=== PATIENT | female | born 1975 | race Caucasian/White ===

== ENCOUNTER 2024-02-22 12:07 | Inpatient (IN) | payer MEDICAID, SELFPAY ==
[2024-02-22 12:08] VITALS: BP 142/86; PULSE 71; RESP 21; TEMP 36.5; O2SAT 99; BMI 23.5
--- NOTE | 2024-02-22 12:13 | CTR_ITS ---
PROCEDURE INFORMATION: Exam: CT Head Without Contrast Exam date and time: 02/22/2024 1:22 PM Age: 48 years old Clinical indication: Altered mental status/memory loss; Patient HX: Hallucinations. ; Additional info: AMS TECHNIQUE: Imaging protocol: Computed tomography of the head without contrast. Radiation optimization: All CT scans at this facility use at least one of these dose optimization techniques: automated exposure control; mA and/or kV adjustment per patient size (includes targeted exams where dose is matched to clinical indication); or iterative reconstruction. COMPARISON: No relevant prior studies available. RADIATION DOSE METRICS: Total DLP (mGy-cm): 876.08 FINDINGS: Brain: Normal. No hemorrhage. Unremarkable white matter. No mass effect. Basal ganglion calcifications. Cerebral ventricles: No ventriculomegaly. Paranasal sinuses: Visualized sinuses are unremarkable. No fluid levels. Mastoid air cells: Visualized mastoid air cells are well aerated. Bones: Unremarkable. No acute fracture. Soft tissues: Unremarkable. CT/CT head wo con* [id number] IMPRESSION: No acute intracranial abnormality.
--- NOTE | 2024-02-22 12:13 | XRR_ITS ---
PROCEDURE INFORMATION: Exam: XR Chest Exam date and time: 02/22/2024 12:22 PM Age: 48 years old Clinical indication: Other: AMS TECHNIQUE: Imaging protocol: Radiologic exam of the chest. Views: 1 view. COMPARISON: No relevant prior studies available. FINDINGS: Lungs: Unremarkable. No consolidation. Pleural spaces: Unremarkable. No pleural effusion. No pneumothorax. Heart/Mediastinum: Unremarkable. No cardiomegaly. Bones/joints: Unremarkable. XR/XR chest 1V portable [id number] IMPRESSION: No acute findings.
--- NOTE | 2024-02-22 12:13 | ECG_ITS ---
[facility] Test Date: 2024-02-22 Pat Name: Alondra Grace Department: Room: Gender: Female Grocery Clerk: : 1975 Requested By: Toni Diaz Order Number: [id number] Pauly MD: Sourav Rock M.D. Measurements Intervals [place] Rate: 76 P: 52 PA: 136 QRS: 71 QRSD: 97 T: 56 QT: 438 QTc: 494 Interpretive Statements SINUS RHYTHM No previous ECG available for comparison Electronically Signed On 02-22-2024 14:32:58 CDT by Sourav Rock M.D. [id number]
--- NOTE | 2024-02-22 12:13 | ED.C_ITS ---
HPI - Psych 2 General: Chief Complaint: Psychiatric Symptoms Stated Complaint: Hallucinations Time Seen by Provider: 02/22/24 12:08 Source: EMS Mode of arrival: EMS Limitations: altered mental status History of Present Illness: 8-year-old female history of PTSD along with depression anxiety EMS states they were called by her mother she has been hallucinating and becoming increasingly agitated combative over the last 4 days. They state that she had stopped taking her meds a month ago. They states she is very combative and hallucinating with them they did have to sedate her she had received 5 mg of Versed along with 300 mg of ketamine patient is currently sedated not able to get any history from her Review of Systems 2 General: Reports: ROS unobtainable due to mental status Physical Exam 2 Const: COMMON NORMALS: negative for patient oriented x3 HENMT: COMMON NORMALS: normocephalic and atraumatic HEAD & SCALP: n ormocephalic and atraumatic Eye: COMMON NORMALS: Equal, round and reactive pupils present and EOMs intact bilaterally PUPIL: Yes Equal, round and reactive pupils present Neck/C-Spine: COMMON NORMALS: full ROM and supple Chest: COMMONS NORMALS: normal inspection of the chest and normal palpation of entire chest wall Resp: COMMON NORMALS: normal respiratory effort, No retractions, No use of accessory muscles and clear to auscultation bilaterally AUSCULTATION: clear to auscultation bilaterally Cardio: COMMON NORMALS: regular rate, regular rhythm and No murmurs present (Cardio) RATE: regular rate RHYTHM: regular rhythm GI: COMMON NORMALS: Normal to inspection, nondistended, normoactive bowel sounds present, Soft to palpation, non-tender and no masses PALPATION: Yes Soft to palpation Extremity: COMMON NORMALS: normal to inspection and full ROM Neuro: COMMON NORMALS: moves all extremities and no focal motor deficits; negative for patient oriented x3 Psych: COMMON NORMALS: negative for mental status grossly normal and negative for Normal thought process present THOUGHT PROCESS: abnormal Skin: COMMON NORMALS: no rashes or lesions noted and no wounds GENERAL SKIN EXAM: no rashes or lesions noted Course 2 Vital Signs: Vital signs: Vital Signs Temperature 97.7 F 02/22/24 12:08 Pulse Rate 61 02/22/24 15:08 Respiratory Rate 18 02/22/24 12:22 Blood Pressure 142/86 02/22/24 12:22 Pulse Oximetry 98 02/22/24 15:08 Oxygen Delivery Me thod Room Air 02/22/24 15:08 MDM - Psych Medical Decision Making Patient presents with acute psychosis she did test positive for amphetamines as well blood work otherwise normal she is medically cleared placed under 96-hour hold I spoke to psychiatrist and will admit. Medical Records I reviewed the patient's medical records. Lab Data I reviewed the patient's lab results. 02/22/24 14:22 02/22/24 14:22 Radiology Impressions Chest X-Ray 02/22/24 12:13 IMPRESSION: No acute findings. Head CT 02/22/24 12:13 IMPRESSION: No acute intracranial abnormality. Laboratory Results WBC 8.95 10^3/uL (3.29-11.43) 02/22/24 14:22 RBC 4.21 10^6/uL (3.85-5.65) 02/22/24 14:22 Hgb 13.50 g/dL (11.27-16.99) 02/22/24 14:22 Hct 40.1 % (36-47) 02/22/24 14:22 MCV 95.2 fl (85-98) 02/22/24 14:22 MCH 32.1 pg (27-33) 02/22/24 14:22 MCHC 33.7 g/dL (30-55) 02/22/24 14:22 RDW 13.3 % (12.1-15.1) 02/22/24 14:22 Plt Count 378 10^3/cmm (157-399) 02/22/24 14:22 MPV 9.3 fL (7.4-10.4) 02/22/24 14:22 Neut % (Auto) 65.5 % 02/22/24 14:22 Lymph % (Auto) 26.9 % 02/22/24 14:22 Emmons % (Auto) 5.7 % 02/22/24 14:22 Eos % (Auto) 0.9 % 02/22/24 14:22 Baso % (Auto) 0.7 % 02/22/24 14:22 Neut # (Auto) 5.86 10^3/uL (1.8-7.7) 02/22/24 14:22 Lymph # (Auto) 2.4 10^3/uL (0.8-4.8) 02/22/24 14:22 Emmons # (Auto) 0.5 10^3/uL (0.2-0.9) 02/22/24 14:22 Eos # (Auto) 0.1 10^3/uL (0.0-0.8) 02/22/24 14:22 Baso # (Auto) 0.1 10^3/uL (0.0-0.1) 02/22/24 14:22 Nucleated RBC % (auto) 0 % 02/22/24 14:22 Nucleated RBCs # 0.0 /100WBC 02/22/24 14:22 Sodium 139 mmol/L (136-145) 02/22/24 14:22 Potassium 3.4 mmol/L (3.5-5.1) L 02/22/24 14:22 Chloride 103 mmol/L (98-107) 02/22/24 14:22 Carbon Dioxide 22 mmol/L (22-29) 02/22/24 14:22 Anion Gap 17.4 (5-19) 02/22/24 14:22 BUN 19 mg/dL (6-20) 02/22/24 14:22 Creatinine 0.5 mg/dL (0.5-0.9) 02/22/24 14:22 GFR Calculation 131.1 mL/min (90-130) H 02/22/24 14:22 Glucose 74 mg/dL (65-115) 02/22/24 14:22 Calculated Osmolality 289 mOsm/kg (285-295) 02/22/24 14:22 Calcium 8.9 mg/dL (8.5-10.5) 02/22/24 14:22 Total Bilirubin 0.7 mg/dL (0.15-1.2) 02/22/24 14:22 AST 18 U/L (0-32) 02/22/24 14:22 ALT 14 U/L (0-33) 02/22/24 14:22 Alkaline Phosphatase 75 U/L (35-105) 02/22/24 14:22 Total Protein 7.7 g/dL (6.6-8.7) 02/22/24 14:22 Albumin 4.4 g/dL (3.5-5.2) 02/22/24 14:22 Globulin 3.3 g/dL (1.3-4.6) 02/22/24 14:22 TSH 2.25 uIU/mL (0.27-4.20) 02/22/24 14:22 HCG, Qual Negative (Negative) 02/22/24 14:56 Urine Color Yellow (Yellow) 02/22/24 14:56 Urine Appearance Slightly cloudy (CLEAR) 02/22/24 14:56 Urine pH 5 (5-7) 02/22/24 14:56 Ur Specific [place] 1.025 (1.005-1.030) 02/22/24 14:56 Urine Protein Trace (Negative) 02/22/24 14:56 Urine Glucose (UA) Norm (Normal) 02/22/24 14:56 Urine Ketones 3+ (Negative) H 02/22/24 14:56 Urine Blood Neg (Negative) 02/22/24 14:56 Urine Nitrate Negative (Negative) 02/22/24 14:56 Urine Bilirubin Neg (Negative) 02/22/24 14:56 Urine Urobilinogen Norm mg/dL (Negative) 02/22/24 14:56 Ur Leukocyte Esterase Negative (Negative) 02/22/24 14:56 Urine RBC None /hpf (0-2) 02/22/24 14:56 Urine WBC None /hpf (0-5) 02/22/24 14:56 Ur Squamous Epith Cells 0-4 /hpf (0-5) H 02/22/24 14:56 Amorphous Sediment 2+ /hpf 02/22/24 14:56 Urine Bacteria 2+ /hpf (NONE) H 02/22/24 14:56 Salicylates 0.5 mg/dL (3-10) L 02/22/24 14:22 Urine Opiates Screen Negative ng/mL (Negative) 02/22/24 14:56 Acetaminophen < 5.0 ug/mL (10-30) L 02/22/24 14:22 Ur Barbiturates Screen Negative ng/mL (Negative) 02/22/24 14:56 Ur Phencyclidine Scrn Negative ng/mL (Negative) 02/22/24 14:56 Ur Amphetamines Screen Positive ng/mL (Negative) H 02/22/24 14:56 U Benzodiazepines Scrn Positive ng/mL (Negative) H 02/22/24 14:56 Urine Cocaine Screen Negative ng/mL (Negative) 02/22/24 14:56 U Marijuana (THC) Screen Positive ng/mL (Negative) H 02/22/24 14:56 Ethyl Alcohol < 10 mg/dL (0-10) 02/22/24 14:22 All radiology interpretation(s) finalized by discharge EKG Data EKG 1: I personally reviewed and interpreted this EKG as follows: EKG interpretation date: 02/22/24 EKG interpretation time: 12:19 Interpretation: nsr hr [address] elevation qrs 97 qtc 469 Discharge Plan Discharge Patient Disposition: Admitted As Inpatient Admit Provider: Elliot Puga Clinical Impression: Acute psychosis Condition: Stable Coding Level of Care Code ED Remedial Reading Teacher for Tyrell Mora
[2024-02-22 12:22] VITALS: BP 142/86; PULSE 66; RESP 18; O2SAT 97
--- NOTE | 2024-02-22 12:53 | PC.PHAR ---
PT USES [facility]. CURRENT MED LIST IS WHAT THEY HAVE ON RECORD. LAST FILL DATES AND QTY DISPENSED ARE IN PHARMACY NOTES.
[2024-02-22] MEDS: haloperidol inj 5 mg/mL INJ 1 mL IVP (13:52)
[2024-02-22] MEDS: LORazepam 2 mg/mL INJ 1 mL IVP (14:01)
[2024-02-22 14:38] LABS: Basophils # 0.1 10^3/uL (0.0-0.1); Basophils % 0.7 %; Eosinophils # 0.1 10^3/uL (0.0-0.8); Eosinophils % 0.9 %; Hematocrit 40.1 % (36-47); Lymphocytes # 2.4 10^3/uL (0.8-4.8); Lymphocytes % 26.9 %; Mean Corpuscular HGB Conc 33.7 g/dL (30-55); Mean Corpuscular Hemoglobin 32.1 pg (27-33); Mean Corpuscular Volume 95.2 fl (85-98); Mean Platelet Volume 9.3 fL (7.4-10.4); Monocytes # 0.5 10^3/uL (0.2-0.9); Monocytes % 5.7 %; Neutrophils # 5.86 10^3/uL (1.8-7.7); Neutrophils % 65.5 %; Nucleated Red Blood Cells % 0 %; Platelet Count 378 10^3/cmm (157-399); Red Blood Count 4.21 10^6/uL (3.85-5.65); Red Cell Distribution Width 13.3 % (12.1-15.1); White Blood Count 8.95 10^3/uL (3.29-11.43)
[2024-02-22 15:02] LABS: Acetaminophen < 5.0 ug/mL (10-30); Alanine Aminotransferase 14 U/L (0-33); Albumin Level 4.4 g/dL (3.5-5.2); Alcohol Level < 10 mg/dL (0-10); Alkaline Phosphatase 75 U/L (35-105); Anion Gap 17.4 (5-19); Aspartate Amino Transferase 18 U/L (0-32); Blood Urea Nitrogen 19 mg/dL (6-20); Calcium 8.9 mg/dL (8.5-10.5); Carbon Dioxide 22 mmol/L (22-29); Chloride 103 mmol/L (98-107); Creatinine Clr Calc Pharmacy 137.8884; Globulin 3.3 g/dL (1.3-4.6); Glomerular Filtration Rate 131.1 mL/min (90-130); Glucose 74 mg/dL (65-115); Osmolality Calculated 289 mOsm/kg (285-295); Potassium 3.4 mmol/L (3.5-5.1); Salicylate 0.5 mg/dL (3-10); Sodium 139 mmol/L (136-145); Thyroid Stimulating Hormone 2.25 uIU/mL (0.27-4.20); Total Bilirubin 0.7 mg/dL (0.15-1.2); Total Protein 7.7 g/dL (6.6-8.7)
[2024-02-22 15:08] VITALS: PULSE 61; O2SAT 98
[2024-02-22 15:11] LABS: HCG Qualitative Urine. Negative (Negative)
--- NOTE | 2024-02-22 15:25 | PC.NURSE ---
96 hr rights reviewed with patient @1324 with assistance of LETY BRITT/Security [employer]. Patient verbalized understandment to 96 hr rights. Patient currently appears asleep with eyes closed, resting comfortably. No verbalized needs at this time, Patient copy left @bedside with patient.
[2024-02-22 15:50] LABS: Amphetamines Screen Urine Positive (Negative); Barbiturates Screen Urine Negative (Negative); Benzodiazepines Screen Urine Positive (Negative); Cocaine Screen Urine Negative (Negative); Opiate Screen Urine Negative (Negative); PCP Screen Urine Negative (Negative); THC Screen Urine Positive (Negative)
[2024-02-22 15:59] LABS: Bilirubin Urine Neg (Negative); Blood Urine Neg (Negative); Glucose Urine UA Norm (Normal); Ketones Urine 3+ (Negative); Leukocyte Esterase Urine Negative (Negative); Nitrate Urine Negative (Negative); Protein Urine Trace (Negative); Specific Gravity, Urine 1.025 (1.005-1.030); Urine Appearance Slightly Cloudy (CLEAR); Urine Color Yellow (Yellow); Urobilinogen Urine Norm (Negative); pH Urine 5 (5-7)
[2024-02-22 16:00] LABS: Add Urine Culture? No; Add Urine Microscopic? YES; Amorphous Sediment Urine 2+ /hpf; Bacteria Urine 2+ /hpf; Squamous Epithelial Cell Urine 0-4 /hpf (0-5)
--- NOTE | 2024-02-22 19:47 | PC.NURSE ---
pts mom called and wanted it noted that the pt has a busted ear drum that she needs surgery for. the pts mother states that the only thing hse did was drink some alcohol this morning and she goes crazy .
[2024-02-22 21:20] VITALS: BP 133/97; PULSE 61; RESP 18; TEMP 36.5; O2SAT 98
[2024-02-22 22:02] VITALS: BP 130/83; PULSE 82; RESP 18; TEMP 36.7; O2SAT 98
[2024-02-23] MEDS: ALPRAZolam 0.5 mg Tablet 1 MG PO ×3 (03:17→20:21)
[2024-02-23] MEDS: hyDROXYzine 25 mg Capsule 50 MG PO ×2 (03:18→16:29)
[2024-02-23 06:00] VITALS: BP 137/82; PULSE 69; RESP 16; O2SAT 98
[2024-02-23] MEDS: hydroCHLOROthiazide 25 mg Tablet PO (07:48)
[2024-02-23] MEDS: ascorbic acid 500 mg Tablet 1000 MG PO (07:48)
[2024-02-23] MEDS: amlodipine 5 mg Tablet PO (07:48)
[2024-02-23] MEDS: PRENATAL VIT NO.130/IRON/FOLIC 1 EACH TABLET PO (07:49)
[2024-02-23] MEDS: cyanocobalamin 1,000 mcg Tablet 500 MCG PO (07:49)
[2024-02-23] MEDS: pantoprazole DR 40 mg Tablet PO (07:49)
--- NOTE | 2024-02-23 08:24 | PC.NURSE ---
During assessment, patient is alert and oriented x4. Patient states that she has some memory of the events that took place over the last couple of days. Patient denies SI, HI, AVH, depression and anxiety, stating I am just so tired.
[2024-02-23] MEDS: thyroid 60 mg Tablet 30 MG PO (09:42)
[2024-02-23] MEDS: OLANZapine 5 mg ODT PO (12:49)
--- NOTE | 2024-02-23 12:54 | PC.NURSE ---
Patient appears agitated, requesting something to calm her nerves. This nurse attempted to discuss the issue at hand with patient, but patient not forthcoming. Adminstered zyprexa 5mg ODT
[2024-02-23 14:00] VITALS: BP 129/86; PULSE 88; RESP 20; TEMP 36.6; O2SAT 96
[2024-02-23 14:23] VITALS: PULSE 117; RESP 15; O2SAT 98
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
[2024-02-23] MEDS: paliperidone ER 3 mg Tablet PO (17:47)
[2024-02-23] MEDS: doxepin 50 mg Capsule PO (20:18)
[2024-02-23] MEDS: trazodone 50 mg Tablet PO (20:18)
[2024-02-23 21:26] VITALS: BP 105/70; PULSE 77; RESP 13; TEMP 36.6; O2SAT 98
[2024-02-24] MEDS: hyDROXYzine 25 mg Capsule 50 MG PO (03:14)
[2024-02-24] MEDS: ALPRAZolam 0.5 mg Tablet 1 MG PO ×3 (04:22→21:41)
[2024-02-24 06:00] VITALS: BP 132/82; PULSE 82; RESP 14; TEMP 36.7; O2SAT 98
[2024-02-24] MEDS: hydroCHLOROthiazide 25 mg Tablet PO (08:19)
[2024-02-24] MEDS: cyanocobalamin 1,000 mcg Tablet 500 MCG PO (08:19)
[2024-02-24] MEDS: amlodipine 5 mg Tablet PO (08:19)
[2024-02-24] MEDS: pantoprazole DR 40 mg Tablet PO (08:19)
[2024-02-24] MEDS: thyroid 60 mg Tablet 30 MG PO (08:19)
[2024-02-24] MEDS: PRENATAL VIT NO.130/IRON/FOLIC 1 EACH TABLET PO (08:19)
[2024-02-24] MEDS: ascorbic acid 500 mg Tablet 1000 MG PO (08:25)
[2024-02-24] MEDS: ibuprofen 800 mg tablet PO ×2 (12:37→23:51)
--- NOTE | 2024-02-24 13:27 | P.NPUPN_ITS ---
Subjective NPU 2 Subjective: 48-year-old female admitted with paranoia, aggression, and reports of hallucinations with the patient endorsing recent noncompliance with her medication regimen. The patient had described having used methamphetamine over the last week for the first time in several years and stated that she began to question reality as to whether everyone in her family had left to take care of her of her uncle in [place]. She had stated that she was suspicious of her family's intentions and somehow it had led to her being hospitalized here. She had stated that she had felt much better and wished to go home. She had not endorsed improved sleep. She was positive for benzodiazepines, amphetamines, and marijuana. She had minimized her past history of amphetamine use. She had reported having continued pain issues stating that she needed surgery on her perforated eardrum and was reporting that this had somehow led to her use of amphetamine to manage her pain. Mental Status Exam 2 MSE Comments: Patient was sitting on her bed and appeared in some significant distress again today. There is no evidence of any abnormal involuntary motor movements tics or tremors appreciated. She appealed older than her stated age. Her gait was normal. Her hygiene was poor. Her speech was increased in productivity, normal volume. Her mood was described as better. Her affect was odd. Her thought process was more linear but rambled at times. Thought content showed no clear evidence of suicidal or homicidal ideation. No overt paranoia and no clear ideas of reference today. She did not appear to be responding to internal stimuli today. Her recent and remote memory were poor. She was alert and oriented to person, place, month, year but not day or date. Her insight appeared impaired. Her judgment appeared poor. Her impulse control appeared limited. Vitals/I&O/Wt Last Vital Signs Temp 98.1 F 02/24/24 06:00 Pulse 82 02/24/24 06:00 Resp 14 02/24/24 06:00 BP 132/82 02/24/24 06:00 Pulse Ox 98 02/24/24 06:00 O2 Del Method Room Air 02/24/24 06:00 Data NPU 02/22/24 14:22 02/22/24 14:22 A&P Assessment and plan (1) Substance-induced psychotic disorder: (2) Acute psychosis: (3) Methamphetamine abuse: Plan 48-year-old female with no previous reported history of inpatient hospitalization admitted involuntarily after endorsing methamphetamine use with increased agitation, confusion, and psychosis. The patient would likely benefit from inpatient psychiatric hospitalization. #1.? Engage patient in individual milieu and group therapy.? #2? Encourage sober living treatment after discharge at the highest level of care to which he is willing to commit. #3??? Restarted outpatient medications. Continue Invega 3mg to target psychosis, appears improved but still not clear, likely from methamphetamine induced psychosis. #4?? TO-15 minute checks? #5?? Will attempt to gather collateral information Involuntary Hold Information 2 96 Hour Hold: 96 Hour Involuntary Admission: Yes 96 Hour Hold Ending Date: 02/26/24 96 Hour Hold Ending Time: 12:28 Attestations NPU 2 Medical Necessity Statement*: Inpatient hospitalization is medically necessary and deemed to ?be ?the clinically appropriate intervention ?at this time.? We will monitor/initiate medications and make changes as indicated.? The patient?s likely length of stay 4-6 days. Coding Level of Care Code Acute Code for Chg Fwd Diagnoses Substance-induced psychotic disorder F19.959 Acute psychosis F23 Methamphetamine abuse F15.10
[2024-02-24 14:00] VITALS: BP 119/76; PULSE 95; RESP 17; TEMP 36.6; O2SAT 99
[2024-02-24] MEDS: docusate sodium 100 mg Capsule PO (15:03)
[2024-02-24] MEDS: paliperidone ER 3 mg Tablet PO (17:44)
[2024-02-24] MEDS: trazodone 50 mg Tablet 100 MG PO (20:02)
[2024-02-24] MEDS: doxepin 50 mg Capsule PO (20:02)
[2024-02-24 20:36] VITALS: BP 126/83; PULSE 97; RESP 16; TEMP 36.6; O2SAT 96
[2024-02-24] MEDS: magnesium hydroxide 30 mL UDC PO (23:18)
--- NOTE | 2024-02-24 23:43 | PC.NURSE ---
PT REQUESTED MEDICATION FOR CONSTIPATION. COLACE WAS GIVEN EARLIER IN THE DAY BUT THE PT HAS HAD NO RELIEF. MILK OF MAGNESIA ORDERED AND GIVEN. PT IS NOW RESTING QUIETLY.
[2024-02-25 06:00] VITALS: BP 111/74; PULSE 83; RESP 16; O2SAT 98
[2024-02-25] MEDS: amlodipine 5 mg Tablet PO (08:37)
[2024-02-25] MEDS: thyroid 60 mg Tablet 30 MG PO (08:37)
[2024-02-25] MEDS: ibuprofen 800 mg tablet PO ×3 (08:37→23:35)
[2024-02-25] MEDS: ascorbic acid 500 mg Tablet 1000 MG PO (08:38)
[2024-02-25] MEDS: cyanocobalamin 1,000 mcg Tablet 500 MCG PO (08:38)
[2024-02-25] MEDS: PRENATAL VIT NO.130/IRON/FOLIC 1 EACH TABLET PO (08:38)
[2024-02-25] MEDS: ALPRAZolam 0.5 mg Tablet 1 MG PO ×2 (08:38→17:50)
[2024-02-25] MEDS: pantoprazole DR 40 mg Tablet PO (08:38)
[2024-02-25] MEDS: hydroCHLOROthiazide 25 mg Tablet PO (08:38)
--- NOTE | 2024-02-25 09:07 | PC.NURSE ---
IN BED RESTING, AROUSES TO VOICE. PT DEMANDS THAT YOU CAN GO GET ME SOME MORE SCRUBS I WAS SWEATING AND THESE ARE SOAKED. PT WAS EDUCATED THAT WHEN THE ASSESSMENT WAS FINISHED I WOULD ASK THE AID TO BRING PT SCRUBS. DENIES SI/HI AND AVH AT THIS TIME. ALERT AND ORIENTED. PT REQUESTS I GET MY SOMA AND XANAX FOR MY TOOTHACHE, THATS THE ONLY THING THAT HELPS SO I WILL NEED IT. PT WAS INFORMED THAT ONCE IT IS TIME FOR MEDICATIONS THIS MORNING THEN SHE CAN COME UP TO THE NURSES STATION AND GET THEM [id number] AM. PT IS NOTED TO BE IRRITABLE AND DEMANDING. RATES ANXIETY 02/23 AND DEPRESSION 11/24. PT STATES SHE DID NOT SLEEP GOOD AT ALL. PT STATES GOAL FOR THE DAY IS TO GO HOME THAT WOULD BE NICE. PT WAS GIVEN IBUPROFEN 800 MG ORDERED FOR GAFFNEY/TOOTH EXTRACTION ORDERED FOR PAIN. PT WAS ALSO GIVEN SOMA ORDERED AND XANAX MG ORDERED FOR INCREASED ANXIETY. PT STATES I HAVE NOT HAD A BM SINCE I CAN''T REMEMBER. PT WAS EDUCATED THAT THE PREVIOUS RN HAD GIVEN HER MILK OF MAG AND COLACE. THIS RN WILL GIVE COLACE AGAIN WHEN IT IS DUE AT 0903. PT STATES I DOUBT IT WORKS. PT WAS ENCOURAGED TO INCREASE PO INTAKE AND ACTIVITY. ALL QUESTIONS ANSWERED AND SUPPORT WAS VOICED.
[2024-02-25 11:23] VITALS: PULSE 96; RESP 18; O2SAT 99
[2024-02-25] MEDS: acetaminophen 325 mg Tablet 650 MG PO (12:35)
--- NOTE | 2024-02-25 12:41 | PC.NURSE ---
NEW ORDERS RECEIVED FROM DR. CRAFT TO CHANGE REGULAR DIET TO SOFT DIET DUE TO RECENT TOOTH EXTRACTIONS. ALSO RECEIVED AN ORDER FOR CHLORAHEXADINE MOUTH WASH 30 MLS PO QID PRN DUE TO RECENT TOOTH EXTRACTIONS, PAIN AND FOOD IRRITATING THE SITE AFTER EATING. PT WAS EDUCATED ON ALL ORDERS AND WAS VERY THANKFUL ORDERS WERE RECEIVED AND DIET WAS CHANGED. PT WAS ALSO GIVEN TYLENOL 650 MG FOR PAIN 8/10 DUE TO TOOTH EXTRACTION PAIN, AND HAVING A BLOWN EARDRUM. SUPPORT VOICED.
[2024-02-25 14:00] VITALS: BP 109/72; PULSE 72; RESP 16; TEMP 36.6; O2SAT 97
[2024-02-25] MEDS: blistex lip oint 7 gm Tube 1 APPLIC TOPICAL (14:00)
[2024-02-25] MEDS: chlorhexidine gluconate 0.12% Btl 473 mL 30 ML MUCOUS MEM ×2 (16:18→17:49)
[2024-02-25] MEDS: paliperidone ER 3 mg Tablet PO (17:50)
--- NOTE | 2024-02-25 18:34 | PC.NURSE ---
PT HAS RECEIVE XANAX 1 MG TIMES TWO AND SOMA FOR INCREASED PAIN. MEDICATIONS DEEMED EFFECTIVE AT THIS TIME. PT HAS HAD NO OTHER COMPLAINTS OF ANXIETY AT THIS TIME. SUPPORT VOICED.
--- NOTE | 2024-02-25 18:43 | PC.NURSE ---
PT CONTINUES TO COMPLAIN OF CONSTIPATION AND STATES SHE HAS NOT HAD A BM FOR 5 DAYS. PT WAS GIVEN COLACE YESTERDAY AND MILK OF MAG WITH NO RESULTS. THIS RN GAVE PT COLACE THIS AM BUT PT CONTINUES TO STATE SHE HAS NOT HAD A BM.. NEW ORDERS RECEIVED FOR DULCULAX 5 MG PO NOW. PT EDUCATED AND VERBALIZED UNDERSTANDING. PT ENCOURAGED TO DRINK WATER AND INCREASE PO INTAKE AND INCREASE ACTIVITY BY WALKING UP AND DOWN HALLWAY. PT REQUESTED FRUIT PUNCH TO DRINK AND WENT TO SIT DOWN TO WATCH TV. WILL GIVE DULCULAX WHEN PHARMACY APPROVES. SUPPORT VOICED.
--- NOTE | 2024-02-25 19:32 | P.NPUPN_ITS ---
Subjective NPU 2 Subjective: Patient presented today reporting that she is doing okay. She very much downplayed the role of addiction on her situation. She reported that she did not have any issues except for history of drinking with addiction. She reported that the Xanax was not an issue and that her provider is decreasing the Xanax slowly with an understanding of her aging and starting to get to a point where Xanax use is undesirable. She denied any side effects to the medication. We discussed that we would determine whether it was reasonable for discharge versus need to initiate a 21-day hold tomorrow. Mental Status Exam 2 MSE Comments: This is a well-nourished well-developed white female in hospital scrubs with adequate grooming and eye contact looking older than her stated age. No abnormal movements except for mild psychomotor agitation. Cooperative with exam and mild to moderate distress.Her speech was increased in productivity, normal volume. Her mood was described as better. Her affect was odd and slightly pressured. Thought process was linear. Thought content: Patient denied suicidal or homicidal ideation. No overt paranoia and no clear ideas of reference today. She did not appear to be responding to internal stimuli today. She denied auditory or visual hallucinations. Attention and concentration are limited and memory was somewhat reliable but none were formally tested. She was alert and oriented to person, place, month, year but not day or date. Her insight appeared impaired. Her judgment appeared poor. Her impulse control appeared limited. Vitals/I&O/Wt Last Vital Signs Temp 97.8 F 02/25/24 14:00 Pulse 72 02/25/24 14:00 Resp 16 02/25/24 14:00 BP 109/72 02/25/24 14:00 Pulse Ox 97 02/25/24 14:00 O2 Del Method Room Air 02/25/24 11:23 Data NPU 02/22/24 14:22 02/22/24 14:22 A&P Assessment and plan (1) Substance-induced psychotic disorder: (2) Acute psychosis: (3) Methamphetamine abuse: Plan 48-year-old female with no previous reported history of inpatient hospitalization admitted involuntarily after endorsing methamphetamine use with increased agitation, confusion, and psychosis. The patient would likely benefit from inpatient psychiatric hospitalization. 1.? Engage patient in individual milieu and group therapy.? 2.? Restarted outpatient medications. Continue Invega 3mg to target psychosis, appears improved but still not clear, likely from methamphetamine induced psychosis. 3.?? TO-15 minute checks? 4. Will attempt to gather collateral information 5. Encourage sober living treatment after discharge at the highest level of care to which he is willing to commit. Involuntary Hold Information 2 96 Hour Hold: 96 Hour Involuntary Admission: Yes 96 Hour Hold Ending Date: 02/26/24 96 Hour Hold Ending Time: 12:28 Attestations NPU 2 Medical Necessity Statement*: Inpatient hospitalization is medically necessary and the clinically appropriate intervention ?at this time.? We will monitor/initiate medications and make changes as indicated.? The patient?s likely length of stay 3-5 days. Most there is a need for a 21-day hold. Coding Level of Care Code Acute Code for Chg Fwd Diagnoses Substance-induced psychotic disorder F19.959 Acute psychosis F23 Methamphetamine abuse F15.10
[2024-02-25] MEDS: bisacodyl 5 mg Tablet PO (19:35)
[2024-02-25 20:09] VITALS: BP 123/83; PULSE 72; RESP 16; TEMP 36.5; O2SAT 97
[2024-02-25] MEDS: trazodone 50 mg Tablet 100 MG PO (20:31)
[2024-02-25] MEDS: doxepin 50 mg Capsule PO (20:32)
[2024-02-25] MEDS: hyDROXYzine 25 mg Capsule 50 MG PO (20:36)
[2024-02-25 22:00] VITALS: BP 123/83; PULSE 72; RESP 16; TEMP 36.5; O2SAT 97
[2024-02-26] MEDS: ALPRAZolam 0.5 mg Tablet 1 MG PO ×3 (02:45→21:12)
[2024-02-26] MEDS: OLANZapine 5 mg ODT PO ×2 (02:45→13:53)
[2024-02-26 05:04] VITALS: BP 112/72; PULSE 66; RESP 16; O2SAT 99
[2024-02-26] MEDS: amlodipine 5 mg Tablet PO (08:04)
[2024-02-26] MEDS: ascorbic acid 500 mg Tablet 1000 MG PO (08:04)
[2024-02-26] MEDS: thyroid 60 mg Tablet 30 MG PO (08:05)
[2024-02-26] MEDS: ibuprofen 800 mg tablet PO ×2 (08:05→16:16)
[2024-02-26] MEDS: PRENATAL VIT NO.130/IRON/FOLIC 1 EACH TABLET PO (08:05)
[2024-02-26] MEDS: cyanocobalamin 1,000 mcg Tablet 500 MCG PO (08:05)
[2024-02-26] MEDS: hyDROXYzine 25 mg Capsule 50 MG PO ×2 (08:05→21:12)
[2024-02-26] MEDS: magnesium hydroxide 30 mL UDC PO (08:06)
[2024-02-26] MEDS: hydroCHLOROthiazide 25 mg Tablet PO (08:06)
[2024-02-26] MEDS: chlorhexidine gluconate 0.12% Btl 473 mL 30 ML MUCOUS MEM (08:06)
[2024-02-26] MEDS: pantoprazole DR 40 mg Tablet PO (08:06)
[2024-02-26] MEDS: blistex lip oint 7 gm Tube 1 APPLIC TOPICAL (08:38)
[2024-02-26 08:52] VITALS: PULSE 85; RESP 17; O2SAT 99
--- NOTE | 2024-02-26 09:08 | PC.NURSE ---
IN DAY ROOM EATING BREAKFAST. PT REPORTS 10/10 PAIN IN HEAD AND TOOTH. PT WAS GIVEN IBUPROFEN 800 MG ORDERED FOR PAIN. PT WAS ALSO GIVEN MOUTHWASH AFTER BREAKFAST TO RINSE OUT TOOTH EXTRACTION AREA. PT RECEIVED MILK OF MAG 30 MLS FOR NO BM FOR 6 DAYS. PT STILL STATES SHE HAS HAD NO RESULTS WITH THE PREVIOUS GIVEN PRNS FOR CONSTIPATION. SEE MAR FOR DETAILS. BS ARE HYPOACTIVE IN ALL FOUR QUADRANTS, NO TENDERNESS OR DISTENTION WAS NOTED. PT HAS BEEN ENCOURAGED TO INCREASE PHYSICAL ACTIVITY AND DRINK PO FLUIDS, WATER BEING THE BEST. PT HAS NOT REQUESTED ANY FLUIDS, RN OFFERED AND PT DID TAKE SOME COFFEE. PT THEN WENT BACK TO BED TO LAY DOWN DUE TO REPORTING SHE DID NOT SLEEP BUIT 2 HOURS LAST NIGHT. PT WAS GIVEN VISTARIL 50 MG FOR REPORTS OF INCREASED ANXIETY DUE TO PTS XANAX AND SOMA NOT BEING DUE TO TAKE UNTIL 900-1000 OCLOCK. DENIES SI/HI AND AVH AT THIS TIME. RATES ANXIETY 4/10 AND DEPRESSION 4/10. PT STATES THE ONLY THING THAT HELPS IS MY XANAX AND SOMA. PT WAS EDUCATED AGAIN THAT THOSE MEDICATIONS WERE NOT DUE. PT IS NOTED TO BE SOMATIC, IMPULSIVE AND INTRUSIVE AT TIMES. ABLE TO REDIRECT. ALL QUESTIONS ANSWERED AND SUPPORT WAS VOICED.
--- NOTE | 2024-02-26 11:18 | PC.NURSE ---
PT CONTINUES TO REPORT CONSTIPATION DESPITE MULTIPLE INTERVENTIONS, PHARMACEUTICALLY AND INCREASING PO FLUIDS/ACTIVITY. PT DID RECEIVE MILK OF MAG 30 MLS THIS AM WITH NO REPORTED RESULTS. NEW ORDERS RECEIVED FROM DR. CRAFT TO GIVE MAG CITRATE PO NOW FOR CONSTIPATION. PT EDUCATED ON NEW ORDERS, VERBALIZED UNDERSTANDING. PT STATES THATS THE ONLY THING THAT WORKS FOR ME SO THANKS. SUPPORT VOICED.
[2024-02-26] MEDS: magnesium citrate Btl 296 mL 150 ML PO (12:28)
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
[2024-02-26] MEDS: calcium carbonate 500 mg Chew Tablet 1000 MG PO (13:22)
[2024-02-26] MEDS: acetaminophen 325 mg Tablet 650 MG PO ×2 (13:53→21:11)
[2024-02-26 14:00] VITALS: BP 119/88; PULSE 87; RESP 18; TEMP 36.4; O2SAT 99
--- NOTE | 2024-02-26 14:07 | PC.NURSE ---
PT SIGNED CONSENT FOR TREATMENT, 96 HOUR IS COMPLETED. PT STATES SHE DOES NOT WANT TO BE DISCHARGED AT THIS TIME DUE TO NOT BEING ABLE TO GO TO THE BATHROOM AND DRINKING ALL THAT STUFF, I'M AFRAID I'M GOING TO GET IN THE CAR AND SHIT MY PANTS, I JUST TOOK SO MUCH STUFF. PT ALSO STATES SHE IS STILL NOT FEELING WELL AND WOULD PREFER TO LEAVE IN THE MORNING DUE TO TAKING SO MUCH STUFF TO MAKE ME GO TO THE BATHROOM. RN ATTEMPTED TO REACH MOTHER AND WAS UNABLE TO UPDATE HER.
[2024-02-26] MEDS: haloperidol 5 mg Tablet PO (16:16)
--- NOTE | 2024-02-26 17:53 | P.NPUPN_ITS ---
Subjective NPU 2 Subjective: Patient presented today reporting that she is feeling better. Staff reports that she is not displaying the thought patterns or actions that she did at admission. She continues to be ambivalent about her recovery and mostly in denial about addiction been an issue. We discussed concerns about the Soma and the Xanax and identified we do not believe she should be taking them and we will not provide those at discharge. She denied any side effects to the medications. We discussed the plan for discharge in the morning. Mental Status Exam 2 MSE Comments: This is a well-nourished well-developed white female in hospital scrubs with adequate grooming and eye contact looking older than her stated age. No abnormal movements. Cooperative with exam and mild distress. Her speech was normal in productivity, rate and volume. Her mood was described as better. Her affect was odd and slightly pressured. Thought process was linear. Thought content: Patient denied suicidal or homicidal ideation. No overt paranoia and no clear ideas of reference today. She did not appear to be responding to internal stimuli today. She denied auditory or visual hallucinations. Attention and concentration are limited and memory was somewhat reliable but none were formally tested. She was alert and oriented to person, place, month, year but not day or date. Her insight appeared impaired. Her judgment appeared poor. Her impulse control appeared limited. Vitals/I&O/Wt Last Vital Signs Temp 97.5 F L 02/26/24 20:47 Pulse 74 02/26/24 20:47 Resp 18 02/26/24 20:47 BP 110/74 02/26/24 20:47 Pulse Ox 98 02/26/24 20:47 O2 Del Method Room Air 02/26/24 20:47 Data NPU 02/22/24 14:22 02/22/24 14:22 A&P Assessment and plan (1) Substance-induced psychotic disorder: (2) Acute psychosis: (3) Methamphetamine abuse: Plan 48-year-old female with no previous reported history of inpatient hospitalization admitted involuntarily after endorsing methamphetamine use with increased agitation, confusion, and psychosis. The patient would likely benefit from inpatient psychiatric hospitalization. 1.? Engage patient in individual milieu and group therapy.? 2.? Restarted outpatient medications. Continue Invega 3mg to target psychosis, appears improved but still ambivalent and in denial about the addiction issues but not in need of a 21-day hold lacking criteria. 3.?? TO-15 minute checks? 4. Will attempt to gather collateral information 5. Encourage sober living treatment after discharge at the highest level of care to which he is willing to commit. 6. Plan for discharge tomorrow. Involuntary Hold Information 2 96 Hour Hold: 96 Hour Involuntary Admission: Yes 96 Hour Hold Ending Date: 02/26/24 96 Hour Hold Ending Time: 12:28 Attestations NPU 2 Medical Necessity Statement*: Inpatient hospitalization is medically necessary and the clinically appropriate intervention ?at this time.? We will monitor/initiate medications and make changes as indicated.? The patient?s likely length of stay 1 day. Coding Level of Care Code Acute Code for Chg Fwd Diagnoses Substance-induced psychotic disorder F19.959 Acute psychosis F23 Methamphetamine abuse F15.10
[2024-02-26 20:47] VITALS: BP 110/74; PULSE 74; RESP 18; TEMP 36.4; O2SAT 98
[2024-02-26] MEDS: trazodone 50 mg Tablet 100 MG PO (21:12)
[2024-02-26] MEDS: doxepin 50 mg Capsule PO (21:12)
[2024-02-27] MEDS: ibuprofen 800 mg tablet PO (01:36)
[2024-02-27] MEDS: OLANZapine 5 mg ODT PO ×2 (01:36→10:28)
[2024-02-27] MEDS: ondansetron 4 MG Tablet PO (01:36)
[2024-02-27] MEDS: hyDROXYzine 25 mg Capsule 50 MG PO (03:55)
[2024-02-27 06:00] VITALS: BP 109/71; PULSE 72; RESP 16; TEMP 36.4; O2SAT 99
[2024-02-27] MEDS: ALPRAZolam 0.5 mg Tablet 1 MG PO (06:24)
[2024-02-27] MEDS: acetaminophen 325 mg Tablet 650 MG PO ×2 (06:26→10:31)
[2024-02-27] MEDS: chlorhexidine gluconate 0.12% Btl 473 mL 30 ML MUCOUS MEM (06:48)
[2024-02-27 07:43] VITALS: BP 109/71; PULSE 72; RESP 16; TEMP 36.4; O2SAT 99
[2024-02-27] MEDS: ascorbic acid 500 mg Tablet 1000 MG PO (08:23)
[2024-02-27] MEDS: PRENATAL VIT NO.130/IRON/FOLIC 1 EACH TABLET PO (08:23)
[2024-02-27] MEDS: thyroid 60 mg Tablet 30 MG PO (08:23)
[2024-02-27] MEDS: pantoprazole DR 40 mg Tablet PO (08:23)
[2024-02-27] MEDS: cyanocobalamin 1,000 mcg Tablet 500 MCG PO (08:23)
[2024-02-27] MEDS: amlodipine 5 mg Tablet PO (08:24)
[2024-02-27] MEDS: hydroCHLOROthiazide 25 mg Tablet PO (08:24)
[2024-02-27 09:20] VITALS: PULSE 72; RESP 16; O2SAT 99
== END 2024-02-27 11:00 | disposition home or self-care (01) | DRG 897 ==
LOC: ER 16:02 → NP 17:57
PROVIDERS: Admitting Provider Psychiatry & Neurology Psychiatry; Emergency Provider Emergency Medicine; Visit Provider Psychiatry & Neurology Psychiatry
DX: F15.151 Other stimulant abuse with stimulant-induced psychotic disorder with hallucinations (principal); F43.10 Post-traumatic stress disorder, unspecified; F32.A Depression, unspecified; F41.9 Anxiety disorder, unspecified; D64.9 Anemia, unspecified; I10 Essential (primary) hypertension; E03.9 Hypothyroidism, unspecified; K21.9 Gastro-esophageal reflux disease without esophagitis; Z91.148 Patient's other noncompliance with medication regimen for other reason
CPT/HCPCS: 36415; 70450; 71045; 80053; 80306; 80307; 81001; 81025; 84443; 85025; 93005; 96374; 97150; 97165; 99285; J1630; J2060; J3535; Q0162